=== PATIENT | male | born 1945 | race Caucasian/White ===

== ENCOUNTER → 2017-05-31 | Outpatient (CLI) | payer MEDICARE, OTHER ==
[~2017-05-31] MED LIST: AMLO5TAB2 PO; BISO5TAB2 PO; CELE50CA PO; DOCU100C15 PO; ECASA81 PO; FISH500C PO; HYDR-3583 PO; IBUP1TAB7 PO; LORA-650 PO; LOSA100T PO; MINO50CA PO; MULT-65 PO; OMEP20TA93 PO; PROS5TAB PO; SENN8.6T36 PO; SIMV40TA PO; TAMS5CAP PO; VITA200C3 PO; VITA500C18 PO; VOLT1GEL16 TOPICAL
[2017-05-31 08:58] LABS: HEMOGLOBIN 13.6 GM/DL (13.0-17.0); MEAN CELL VOLUME 86.2 FL (80.0-100.0); MEAN CORPUSCULAR HEMOGLOBIN 29.3 PG (27.0-34.0); MEAN PLATELET VOLUME 8.8 FL (7.0-11.0); PLATELET COUNT 198 TH/MM3 (150-450); RED BLOOD COUNT 4.64 MIL/MM3 (4.50-5.90); RED CELL DISTRIBUTION WIDTH 13.7 % (11.6-17.2); WHITE BLOOD COUNT 5.5 TH/MM3 (4.0-11.0)
[2017-05-31 09:21] LABS: BICARBONATE 28.6 MEQ/L (21.0-32.0); CALCIUM 8.8 MG/DL (8.5-10.1); CREATININE 0.94 MG/DL (0.60-1.30)
[2017-05-31 09:23] LABS: BILIRUBIN, URINE NEG (NEG); BLOOD, URINE NEG (NEG); GLUCOSE,URINE NEG (NEG); KETONE, URINE NEG (NEG); MUCUS URINE FEW /lpf (OCC); NITRITE,URINE NEG (NEG); SQUAMOUS EPITHELIAL CELL URINE <1 /hpf (0-5); URINE COLOR YELLOW (YELLW/STRAW); URINE LEUKOCYTE ESTERASE NEG (NEG)
== END ==
LOC: CPRE 07:44
PROVIDERS: ATTEND Orthopaedic Surgery
DX: Z01.812 Encounter for preprocedural laboratory examination (principal); M79.609 Pain in unspecified limb; M17.12 Unilateral primary osteoarthritis, left knee; I10 Essential (primary) hypertension
CPT/HCPCS: 36415; 80048; 81001; 85027; 85610; 85730

== ENCOUNTER 2017-06-18 05:44 | Inpatient (IN) | payer MEDICARE, OTHER ==
[~2017-06-18] VITALS: Ht 165.1 cm; Wt 96.4 kg
[~2017-06-18 05:44] MED LIST changes: -ECASA81 PO
[2017-06-18] MEDS ORDERED: ceFAZolin 2 GM PREMIX 50 ML IV SCH (06:15)
[2017-06-18] MEDS ORDERED: LACTATED RINGER'S 1000 ML IV PRN (06:15)
[2017-06-18] MEDS ORDERED: POVIDONE IODINE 5% (ANTISEPSIS KIT) 4 APPLICATIONS EACH NARE PRN (06:15)
[2017-06-18] MEDS ORDERED: SODIUM CHLORID 0.9% 500 ML IV PRN (06:15)
[2017-06-18] MEDS ORDERED: CHLORHEXIDINE GLUCONATE 4% SOLN 120 ML BTL TOPICAL SCH (06:15)
[2017-06-18] MEDS ORDERED: EXPAREL PERI-ARTICULAR INJECTION (TOTAL VOL. 100 ML) P-ARTICULR SCH ×2 (06:15)
[2017-06-18] MEDS ORDERED: METOPROLOL TARTRATE 25 MG TAB PO PRN (06:15)
[2017-06-18] MEDS ORDERED: CHLORHEXIDINE GLUCONATE 2 % 1 PACK (2 CLOTHS) TOPICAL PRN (06:15)
[2017-06-18] MEDS ORDERED: TRANEXAMIC ACID INJ 965 MG in SODIUM CHLORIDE 0.9% INJ 100 ML IV SCH ×4 (06:15)
[2017-06-18] MEDS ORDERED: GENTAMICIN SULFATE 80 MG/2 ML VIAL ONE (07:27)
[2017-06-18] MEDS ORDERED: ACETAMINOPHEN 1000 MG/100 ML 100 ML IV ONE (08:04)
[2017-06-18] MEDS ORDERED: FAMOTIDINE 20 MG/2 ML VIAL ONE (08:04)
[2017-06-18] MEDS ORDERED: MIDAZOLAM HCL 2 MG/2 ML VIAL ONE (08:05)
[2017-06-18] MEDS ORDERED: PROPOFOL 200 MG/20 ML AMP ONE ×2 (08:12)
[2017-06-18] MEDS ORDERED: BUPIVACAINE LIPOSOME PF 1.3% 20 ML VIAL ONE (08:31)
[2017-06-18] MEDS ORDERED: MORPHINE SULFATE 2 MG/ML INJ IV PUSH PRN (11:00)
[2017-06-18] MEDS ORDERED: ACETAMINOPHEN/HYDROcodone 325 MG/7.5 MG TAB PO PRN (11:00)
[2017-06-18] MEDS: KETOROLAC TROMETHAMINE 30 MG/ML (IVP) VIAL IVP SCH ×3 (11:00→22:35)
[2017-06-18] MEDS ORDERED: TRANEXAMIC ACID INJ 0 MG in SODIUM CHLORIDE 0.9% INJ 100 ML IV SCH (11:00)
[2017-06-18] MEDS ORDERED: Post-op Orders (for Pharmacy) XX ONE (11:00)
[2017-06-18] MEDS ORDERED: ONDANSETRON HCL 4 MG/2 ML VIAL IVP PRN (11:00)
[2017-06-18] MEDS ORDERED: MAGNESIUM HYDROXIDE SUSP 30 ML CUP PO PRN (11:00)
[2017-06-18] MEDS ORDERED: ACETAMINOPHEN/HYDROcodone 325 MG/10 MG TAB PO PRN (11:00)
--- NOTE | 2017-06-18 11:00 | HHI.PR ---
Immediate Post Op Note Procedure Date: Jun 18, 2017 Pre Op Diagnosis: (1) Primary osteoarthritis of right knee Post Op Diagnosis: (1) Primary osteoarthritis of right knee Surgeon: Dc Bridges M.D. Intern Product Marketing Manager(s): Cipriano Brunner Procedure: Right total knee arthroplasty with [place] Triathlon prosthesis (uncemented) Findings: There is severe osteoarthritis in the right knee that was tricompartmental in nature. There is eburnation, osteophytes and loss of articular cartilage to bone on bone. Complications: None Specimen(s) removed: None Estimated blood loss: 250 mL Anesthesia: Regional Block (adductor canal block), Spinal, Local (bupivacaine liposomal) Drains: Hemovac (2) IVF Tourniquet time (min at mmHg) 0 Patient to: PACU Patient Condition: Good Implant/Devices: SEE IMPLANT LOG (if applicable) Date/Time of Procedure: SEE SURGICAL CARE RECORD Branden Bridges MD (Charles) Jun 18, 2017 10:59
--- NOTE | 2017-06-18 11:07 | PD.OP ---
Operative Report Date of Surgery: Jun 18, 2017 Preoperative Diagnosis: (1) Primary osteoarthritis of right knee Postoperative Diagnosis: (1) Primary osteoarthritis of right knee Procedure: Right total knee arthroplasty using [place] Triathlon prosthesis (uncemented) Anesthesia: Spinal with supplemental adductor canal block regional and local with bupivacaine liposomal Surgeon: Dc Bridges M.D. Trailer Park Manager(s): Cipriano Brunner Operation and Findings: Indications and Findings: This 71-year-old man has had long-standing pain in his right knee was(decreasingly tooth anti-inflammatory agents and analgesics as well as intra-articular subcortical steroids and viscose supplementation. His activity levels have been decreased because of this. His ambulation tolerance is 1/2 mile. He has difficulty with stairs and standing from a seated position. Physical findings show significant degenerative varum with crepitation on motion, tenderness the medial aspect especially but also with medial laxity and medial osteophytes. X-rays showed severe osteoarthritis with loss of articular cartilage to bone on bone, large osteophytes and tricompartmental and obvious eburnation. Operative findings showed severe osteoarthritis in the medial compartment especially but also in the lateral patellofemoral compartments with eburnation, osteophytes and loss of articular cartilage to subchondral bone. The prosthesis used was a Paramjit Triathlon prosthesis. The femur was a size 6, cruciate retaining, uncemented. The tibial baseplate was a size 6 Tritanium with a 9 mm cruciate retaining X3 polyethylene spacer. The patella was a size 35 mm Tritanium backed. The patient was brought to the clean-air operating suite. A spinal anesthetic was administered as well as a regional anesthetic by abductor canal block. The position was supine with a small bolster under the hip on the operative side. A pneumatic tourniquet was applied to the upper thigh. The lower extremity was then prepped with alcohol, Hibiclens and ChloraPrep and draped in the usual manner with the knee draped free. An appropriate timeout procedure was carried out. An incision was made from about 3 fingerbreadths above the superior medial pole of patella down the tibial tubercle on the medial side. The incision was deepened through the subcutaneous tissue to the retinacular structures which were exposed medially and laterally. A medial retinacular incision was then made from the superior middle pole of patella down the tibial tubercle and up into the quadriceps tendon splitting it longitudinally and the medial one third. The patella was reflected. The infrapatellar fat pad was debulked. The anterior cruciate ligament was excised. Medial and lateral meniscectomies were initiated. Fenestrations were made in the distal femur and proximal tibia for intramedullary referencing guides. The distal femoral cutting guide and jig were then assembled for a 5, 8 mm cut. When this was fit position and placed cutting block was stabilized with pins. The jig was removed. The distal femoral cut was then completed with the oscillating saw. The sizing guide was then positioned in place along Whitesides line and the epicondylar axis and stabilized with pins. The femoral size was then determined as noted above. The 4-in-1 cutting block was then positioned in place. Anterior and posterior cuts were made followed by posterior and anterior chamfer cuts taking care to prevent injury to ligamentous structures. Osteophytes were then trimmed from the distal femur. A bone plug was then placed into the fenestration of the distal femur. The proximal tibia was then exposed. The medial and lateral meniscectomies were completed. The proximal tibial cutting guide was then positioned in place and stabilized with a pin for rotation. The depth of cut was then verified with a stylus off the lateral side. The cutting block was stabilized with pins. The jig was removed. The depth of cut was then verified and adjusted appropriately with the use of the spacer block. The proximal tibial cut was then made with the oscillating saw taking care to prevent injury to neurovascular and ligamentous structures. Proximal tibial bone was removed. Local anesthetic was administered with Exparel in the posterior capsule. The tibial baseplate trial was then positioned in place. After verifying the appropriate size, the base plate trial was positioned in place along with its spacer. The femoral component was then impacted into place. The alignment was checked. The tibial baseplate was then pinned in place on the tibia. Attention was directed to the patella. The patella drill guide was positioned in place for the appropriate sized patella. Patellar drilling was then carried out. The trial patella was positioned in place. The knee was taken through a range of motion which was easily 0 extension to 140. The patella trial was removed. The femoral drill holes were made. The femoral trials were removed. The tibial spacer was removed. A bone plug was placed into the proximal tibia. The tibial punch was impacted through the proximal tibial punch guide. This was all removed followed by placement of the tibial drill guide. The tibial drill holes were then made. The guide was removed. The cut ends of bone were then cleaned with pulse lavage. The tibial baseplate was then impacted into place and seated appropriately. The spacer was inserted. The the femoral component was then impacted into place and seated appropriately. The patella component was then seated with the patellar device and tightened appropriately. The knee was taken through a range of motion which was comparable to the previous range of motion with excellent stability in flexion and extension and appropriate patellofemoral tracking. The remainder of the Exparel was then injected throughout the knee as a local anesthetic. Drains were brought out the superior lateral aspect of the suprapatellar pouch. Wound closure then commenced using 0 Vicryl interrupted [id number] sutures for the capsular and fascial structures, 2-0 Vicryl interrupted simple sutures with buried knots for the subcutaneous tissues and 4- 0 Monocryl, tenuous subcuticular closure for the skin. The wound was then dressed with Steri-Strips followed by Optifoam silver impregnated dressing. Sterile soft roll with a cooling pad and Jose Manuel bandage from the base of the toes to mid thigh were then applied. Patient was then transferred from the operating room to the recovery room in satisfactory condition having tolerated procedure well. Counts are correct. Specimens: None. Estimated blood loss: 250 mL Branden Bridges MD (Charles) Jun 18, 2017 11:07
--- NOTE | 2017-06-18 11:13 | HHI.FF ---
Face to Face Verification Diagnosis: (1) Status post total right knee replacement Physical Therapy Gait training Knee: Total knee, Protocol: Left, Gait training, Full weight bearing Right LE Weight Bearing: WB as tolerated Right LE Range of Motion: Active ROM (active, active-assisted and passive range of motion. Range of motion goal is 0 extension to 135 of flexion.) Nursing Nursing: Dressing changes (beginning on postoperative day 7) Dressing Changes: Daily dressing change (to begin on postoperative day 7), Coverderm/Primapore Additional Instructions Remove Steri-Strips on postoperative day 14. I have seen patient Geo Hammer Jr uLis on 06/18/17. My clinical findings support the need for the requested home health care services because: Ltd mobility - disease progression Limited ability to care for self High risk of falls I certify that my clinical findings support that this patient is homebound because: Post-op weakness Unsteady gait/balance Unsafe to leave home unassisted Branden Bridges MD (Charles) Jun 18, 2017 11:13
[2017-06-18] MEDS ORDERED: DO NOT ADM ANY ANTICOAGULANT DRUGS PRN (11:15)
[2017-06-18] MEDS ORDERED: HYDR-3583 PO (11:15)
[2017-06-18] MEDS ORDERED: ECASA81 PO (11:16)
[2017-06-18] MEDS: LACTATED RINGER'S 1000 ML INJ 1,000 ML IV SCH ×2 (11:40→22:37)
[2017-06-18] MEDS ORDERED: *morphine SULFATE 8 MG/ML PERIprocedure ONLY ONE ×2 (11:42→12:11)
[2017-06-18] MEDS ORDERED: PHENYLEPH/NS 1000 MCG/10 ML SYR IV ONE (12:00)
[2017-06-18] MEDS ORDERED: KETOROLAC TROMETHAMINE 30 MG/ML (IVP) VIAL IV PUSH ONE (12:00)
[2017-06-18] MEDS ORDERED: LACTATED RINGER'S 1000 ML INJ 1,000 ML IV ONE (12:00)
[2017-06-18] MEDS ORDERED: PROPOFOL 200 MG/20 ML AMP IV ONE (12:00)
[2017-06-18] MEDS ORDERED: ONDANSETRON HCL 4 MG/2 ML VIAL IV PUSH ONE (12:00)
[2017-06-18] MEDS ORDERED: ePHEDrine/NS 25 MG/5 ML SYRINGE IV ONE (12:00)
[2017-06-18] MEDS: ACETAMINOPHEN/HYDROcodone 325 MG/7.5 MG TAB PO PRN ×3 (12:11→22:32)
--- NOTE | 2017-06-18 12:14 | RADRPT ---
EXAM DATE/TIME: 06/18/2017 11:45 [facility] COMPARISON: No previous studies available for comparison. INDICATIONS : Post-op left knee. MEDICAL HISTORY : None. SURGICAL HISTORY : None. ENCOUNTER: Initial ACUITY: 1 day PAIN SCORE: 5/10 LOCATION: Left Knee. FINDINGS: Two view examination of the left knee demonstrates postoperative left total knee replacement. Drain i n soft tissues. Normal alignment. No complications. CONCLUSION: 1. Postop left total knee replacement. Davian Santamaria MD on June 18, 2017 at 12:11 Board Certified Radiologist. This report was verified electronically.
--- NOTE | 2017-06-18 14:25 | PD.CONS ---
[facility] By Dr. Iban Bridges Reason for Consult Medical management Primary Care Physician Pilo Ly MD Diagnoses: History of Present Illness This is a 71-year-old male complaining of bilateral knee pain affecting his activities of daily living secondary to osteoarthritis. Underwent elective replacement of the right knee by Dr. Bridges who requested consultation to evaluate and manage multiple medical conditions. Anesthesia records reviewed the was hemodynamically stable received 1600 mL crystalloid and EBL 200 ml. he has hypertension controlled on Norvasc, Cozaar, bisoprolol/Hydrocort Dyazide, BPH manage on Proscar and Flomax, allergies on Claritin, Protonix for GERD and pravastatin for hyperlipidemia. At this time complains of mild right knee pain. All other systems reviewed negative Review of Systems Except as stated in HPI: all other systems reviewed are Neg Past Family Social History Allergies: Uncoded Allergies: STEROIDS (Allergy, Severe, FATIGUE, 05/31/17) Past Medical History As previously mentioned Past Surgical History Appendectomy, bladder cancer, basal cell cancer, rotator cuff surgery and bilateral knee scopes Reported Medications Reported Meds & Active Scripts Active Hydrocodone-Acetaminophen 10-325 mg Tab 1 Tab PO Q4H PRN Reported Omeprazole 20 Mg Tab 20 Mg PO DAILY Fish Oil ([place]-3 Fatty Acids) 60 Mg-90 Mg-500 Mg Cap 1 Cap PO DAILY Multi-Vitamin Daily (Multiple Vitamin) 1 Tab Tab 1 Tab PO DAILY Vitamin E 200 Unit Cap 400 Units PO DAILY Vitamin C Sr (Ascorbic Acid) 500 Mg Caper 1,000 Mg PO DAILY Voltaren (Diclofenac Sodium) 1 % Gel..gram. 1 Applic TOPICAL DAILY Docusate Sodium 100 Mg Cap 100 Mg PO DAILY Senna-Tabs (Sennosides) 8.6 Mg Tab 8.6 Mg PO DAILY Minocycline (Minocycline HCl) 50 Mg Cap 50 Mg PO BID Amlodipine (Amlodipine Besylate) 5 Mg Tab 5 Mg PO DAILY Losartan (Losartan Potassium) 100 Mg Tab 100 Mg PO DAILY Proscar (Finasteride) 5 Mg Tab 5 Mg PO DAILY Do not crush. Ibuprofen 800 Mg Tab 800 Mg PO Q8H PRN Flomax (Tamsulosin HCl) 0.4 Mg Cap 0.4 Mg PO HS Simvastatin 40 Mg Tab 40 Mg PO HS Bisoprolol-Hydrochlorothiazide 5-6.25 Mg Tab 1 Tab PO DAILY Celebrex (Celecoxib) 50 Mg Cap 50 Mg PO BID Allergy Relief (Loratadine) 10 Mg Tab 10 Mg PO DAILY Family History No CVA Social History Does not smoke or drink Physical Exam Vital Signs Vital Signs Date Time Temp Pulse Resp B/P (MAP) Pulse Ox O2 Delivery O2 Flow Rate FiO2 06/18/17 12:30 60 16 150/73 (98) 99 Room Air 06/18/17 12:23 16 06/18/17 12:15 64 16 158/83 (108) 97 Room Air 06/18/17 12:00 62 16 129/77 (94) 97 Room Air 06/18/17 11:45 60 16 144/80 (101) 99 Room Air 06/18/17 11:30 64 16 112/72 (85) 97 Room Air 06/18/17 11:15 97.5 66 16 99/67 (78) 97 Room Air 06/18/17 06:00 98.9 61 18 135/78 (97) 97 Physical Exam GENERAL: This is a well-nourished, well-developed patient, in no apparent distress. SKIN: No rashes, ecchymoses or lesions. Cool and dry. HEAD: Atraumatic. Normocephalic. No temporal or scalp tenderness. EYES: Pupils equal round and reactive. Extraocular motions intact. No scleral icterus. No injection or drainage. ENT: Nose without bleeding, purulent drainage or septal hematoma. Throat without erythema, tonsillar hypertrophy or exudate. Uvula midline. Airway patent. NECK: Trachea midline. No JVD or lymphadenopathy. Supple, nontender, no meningeal signs. CARDIOVASCULAR: Regular rate and rhythm without murmurs, gallops, or rubs. RESPIRATORY: Clear to auscultation. Breath sounds equal bilaterally. No wheezes , rales, or rhonchi. GASTROINTESTINAL: Abdomen soft, non-tender, nondistended. No hepato-splenomegaly , or palpable masses. No guarding. MUSCULOSKELETAL: Extremities without clubbing, cyanosis, or edema. No joint tenderness, effusion, or edema noted. No calf tenderness. Negative Homans sign bilaterally. NEUROLOGICAL: Awake and alert. Cranial nerves II through XII intact. Motor and sensory grossly within normal limits. Five out of 5 muscle strength in all muscle groups. Normal speech. Assessment and Plan Assessment and Plan This is a 71-year-old male complaining of bilateral knee pain affecting his activities of daily living secondary to osteoarthritis. Underwent elective replacement of the right knee by Dr. Bridges who requested consultation to evaluate and manage multiple medical conditions. Anesthesia records reviewed the was hemodynamically stable received 1600 mL crystalloid and EBL 200 ml. Right knee osteoarthritis status post replacement. Stable continue postoperative care with physical therapy, wound care, pain management with Lortab, IV morphine and IV Toradol and DVT prophylaxis with aspirin. Hypertension controlled on Norvasc, Cozaar, bisoprolol/Hydrocort Dyazide BPH stable on Proscar and Flomax Allergies on Claritin, Controlled GERD. Asymptomatic on PPI Hyperlipidemia. Continue pravastatin. Constipation. Continue bowel regimen Discussed Condition With Patient and nursing staff Rob Wyatt MD Jun 18, 2017 14:25
[2017-06-18 15:59] VITALS: BP 133/72; PULSE 65; RESP 18; TEMP 96.7; O2SAT 97
[2017-06-18] MEDS ORDERED: FINASTERIDE 5 MG TAB PO ONE (17:45)
[2017-06-18 19:23] VITALS: BP 127/70; PULSE 84; RESP 18; TEMP 96.7; O2SAT 98
[2017-06-18] MEDS ORDERED: MINOCYCLINE HCL 50 MG CAP PO SCH (21:00)
[2017-06-18] MEDS ORDERED: CELECOXIB 50 MG PO SCH (21:00)
[2017-06-18] MEDS ORDERED: PRAVASTATIN SOD 80 MG TAB PO SCH (21:00)
[2017-06-18] MEDS ORDERED: TAMSULOSIN HCL 0.4 MG CAP PO SCH (21:00)
[2017-06-18] MEDS ORDERED: ZOLPIDEM TARTRATE 5 MG TAB PO PRN (21:00)
[2017-06-18] MEDS: ASPIRIN EC 81 MG TABEC PO SCH (22:33)
[2017-06-18 23:35] VITALS: BP 107/81; PULSE 67; RESP 18; TEMP 97.7; O2SAT 96
[2017-06-19] MEDS: KETOROLAC TROMETHAMINE 30 MG/ML (IVP) VIAL IVP SCH ×2 (03:50→12:27)
[2017-06-19 03:52] VITALS: BP 146/77; PULSE 71; RESP 18; TEMP 97.1; O2SAT 97
--- NOTE | 2017-06-19 06:35 | PD.ORT.PN ---
Subjective Post Op Day #: 1 Subjective Remarks He is doing well. He has minimal complaints related to his knee at this time. He walked around the PACU with therapy yesterday and again, when he came to the floor he walked around the floor. Range of Motion 0 to 98. Distance Walked 175 feet with physical therapy. Objective Vitals Vital Signs Date Time Temp Pulse Resp B/P (MAP) Pulse Ox O2 Delivery O2 Flow Rate FiO2 06/19/17 04:21 17 06/19/17 04:21 17 06/19/17 03:52 97.1 71 18 146/77 (100) 97 06/19/17 00:54 Room Air 06/18/17 23:35 97.7 67 18 107/81 (90) 96 06/18/17 23:32 17 06/18/17 19:23 96.7 84 18 127/70 (89) 98 06/18/17 15:59 96.7 65 18 133/72 (92) 97 06/18/17 15:00 66 16 124/74 (91) 99 Room Air 06/18/17 14:00 60 16 136/77 (96) 99 Room Air 06/18/17 13:00 70 16 128/70 (89) 100 Room Air 06/18/17 12:30 60 16 150/73 (98) 99 Room Air 06/18/17 12:15 64 16 158/83 (108) 97 Room Air 06/18/17 12:00 62 16 129/77 (94) 97 Room Air 06/18/17 11:45 60 16 144/80 (101) 99 Room Air 06/18/17 11:30 64 16 112/72 (85) 97 Room Air 06/18/17 11:15 97.5 66 16 99/67 (78) 97 Room Air I/O 06/18/17 06/18/17 06/18/17 06/19/17 06/19/17 06/19/17 07:00 15:00 23:00 07:00 15:00 23:00 Intake Total 2200 ml 480 ml 480 ml Output Total 785 ml 310 ml 550 ml Balance 1415 ml 170 ml -70 ml Intake Oral 500 ml 480 ml 480 ml IV Total 100 ml Other 1600 ml Output Urine Total 500 ml 200 ml 550 ml Drainage Total 85 ml 110 ml Estimated Blood Loss 200 ml # Bowel Movements 0 0 Imaging Last 24 hours Impressions Knee X-Ray 06/18/17 1144 Signed Impressions: Service Date/Time: Sunday, June 18, 2017 11:45 - CONCLUSION: 1. Postop left total knee replacement. Davian Santamaria MD Objective Remarks He is resting comfortably, supine in bed, in the CPM. The dressing is dry and intact. His neurovascular status is intact. Assessment & Plan Ortho Post Op Day #: 1 Problem List: (1) Status post total right knee replacement ICD Codes: Z96.651 - Presence of right artificial knee joint Plan: Continue postoperative care and PT. Assessment and Plan Condition: Good. Orthopedically stable. DVT prophylaxis: TEDs, aspirin, sequentials. Discharge plans: Home with home health care. An appointment was scheduled through the office. Prescriptions: Helen Branden Bridges MD (Charles) Jun 19, 2017 06:34
--- NOTE | 2017-06-19 06:56 | HHI.DS ---
Discharge Summary Admission Date Jun 18, 2017 at 05:44 Discharge Date: Jun 19, 2017 Admitting Diagnosis Primary osteoarthritis, left knee Diagnosis: (1) Primary osteoarthritis of left knee Diagnosis: Principal ICD Codes: M17.12 - Unilateral primary osteoarthritis, left knee Status: Resolved (2) Status post total left knee replacement Diagnosis: Principal ICD Codes: Z96.652 - Presence of left artificial knee joint Procedures Left total knee arthroplasty with Paramjit Triathlon prosthesis (uncemented) on Brief History This is a 71 year old male patient has had left knee pain nonresponsive to conservative measures and progressively worsening in pain and disability over the past few years. He has had increasing deformity in the knee. He has not responded to conservative measures including viscosupplementation, intra- articular corticosteroids, oral anti-inflammatory agents ambulatory aids and exercises. Physical findings show severe varus left knee with an antalgic gait, palpable osteophytes and medial laxity. X-ray showed severe osteoarthritis down to [id number] in the medial compartment with large osteophytes medially, laterally in the patellofemoral compartment. Significant Findings Laboratory Tests Test 06/19/17 05:40 Hemoglobin 11.0 GM/DL Hematocrit 31.4 % Laboratory Tests Imaging Last 72 hours Impressions Knee X-Ray 06/18/17 1144 Signed Impressions: Service Date/Time: Sunday, June 18, 2017 11:45 - CONCLUSION: 1. Postop left total knee replacement. Davian Santamaria MD PE at Discharge He is resting comfortably, supine in bed, in the CPM. The dressing is dry and intact. His neurovascular status is intact. Hospital Course The patient was admitted on 06/18/2017. He had the above noted left total knee arthroplasty carried out. Preoperatively and subsequently postoperatively he had prophylactic antibiotics in the form of Ancef. In addition, he had tranexamic acid for assist with hemostasis. Postoperatively, DVT prophylaxis was initiated with KENA stockings and sequentials. Aspirin was added on the first postoperative day. He was placed into a continuous passive motion device which was used while in bed. He started with physical therapy on the day of surgery, walking in the PACU and subsequently on the floor. He ambulated with therapy 175 feet as documented. He had a range of motion from 0 extension to 93 of flexion on the first day of surgery. He was progressing well and continue with physical therapy. He is discharged home with home health care on 06/19/2017. He has a follow-up appointment. Pt Condition on Discharge: Good Discharge Disposition: Disch w/ Home Health Serv Discharge Instructions Diet Instructions: As Tolerated, No Restrictions Activities You Can Perform: Full Weight Bearing, Shower Only-No Bath Activities to Avoid: Lifting/Bending, Strenuous Activity, Bathing, Driving Follow up Referrals: Orthopedics with Branden Bridges MD (Charles) New Medications: Aspirin DR (Aspirin DR) 81 Mg Tabdr 81 MG PO BID for Prevent Blood Clot for 30 Days, #60 TAB Continued Medications: Ascorbic Acid ER (Vitamin C Sr) 500 Mg Caper 1000 MG PO DAILY for Nutritional Supplement, CAP 0 Refills Bisoprolol-Hydrochlorothiazide (Bisoprolol-Hydrochlorothiazide) 5-6.25 Mg Tab 1 TAB PO DAILY for Blood Pressure Management, #30 TAB 0 Refills Celecoxib (Celebrex) 50 Mg Cap 50 MG PO BID for Pain Management, CAP 0 Refills Diclofenac Sodium (Voltaren) 1 % Gel..gram. 1 APPLIC TOPICAL DAILY Docusate Sodium (Docusate Sodium) 100 Mg Cap 100 MG PO DAILY for Prevent Constipation, #60 CAP 0 Refills Finasteride (Proscar) 5 Mg Tab 5 MG PO DAILY for Manage Prostate Problems, #30 TAB 0 Refills Do not crush. Hydrocodone-Acetaminophen (Hydrocodone-Acetaminophen) 10-325 mg Tab 1 TAB PO Q4H PRN for PAIN, #30 TAB 0 Refills (This prescription has been renewed ) Ibuprofen (Ibuprofen) 800 Mg Tab 800 MG PO Q8H PRN for PAIN SCALE 1 TO 10, TAB 0 Refills Loratadine (Allergy Relief) 10 Mg Tab 10 MG PO DAILY, TAB Losartan (Losartan) 100 Mg Tab 100 MG PO DAILY for Blood Pressure Management, #30 TAB 0 Refills Minocycline (Minocycline) 50 Mg Cap 50 MG PO BID for Mgmt Bacterial Infection, CAP 0 Refills Multiple Vitamin (Multi-Vitamin Daily) 1 Tab Tab 1 TAB PO DAILY for Nutritional Supplement, TAB 0 Refills [place]-3 Fatty Acids (Fish Oil) 60 Mg-90 Mg-500 Mg Cap 1 CAP PO DAILY Omeprazole (Omeprazole) 20 Mg Tab 20 MG PO DAILY, #30 TAB 0 Refills Sennosides (Senna-Tabs) 8.6 Mg Tab 8.6 MG PO DAILY for Constipation, #30 TAB 0 Refills Simvastatin (Simvastatin) 40 Mg Tab 40 MG PO HS for Cholesterol Management, #30 TAB 0 Refills Tamsulosin (Flomax) 0.4 Mg Cap 0.4 MG PO HS for Manage Prostate Problems, #30 CAP 0 Refills Vitamin E (Vitamin E) 200 Unit Cap 400 UNITS PO DAILY for Nutritional Supplement, CAP 0 Refills Branden Bridges MD (Charles) Jun 19, 2017 06:56
[2017-06-19 06:59] LABS: HEMATOCRIT 31.4 % (39.0-51.0)
[2017-06-19 08:00] VITALS: BP 140/78; PULSE 71; RESP 18; TEMP 96.9; O2SAT 98
[2017-06-19] MEDS: ASPIRIN EC 81 MG TABEC PO SCH (08:39)
[2017-06-19] MEDS: ACETAMINOPHEN/HYDROcodone 325 MG/7.5 MG TAB PO PRN ×2 (08:40→12:26)
[2017-06-19] MEDS ORDERED: FINASTERIDE 5 MG TAB PO SCH ×2 (09:00→14:00)
[2017-06-19] MEDS ORDERED: VITAMIN E 400 UNIT PO SCH (09:00)
[2017-06-19] MEDS ORDERED: BISOPROLOL HYDROCHLOROTHIAZIDE PO SCH (09:00)
[2017-06-19] MEDS ORDERED: LOSARTAN 50 MG TAB PO SCH (09:00)
[2017-06-19] MEDS ORDERED: DOCUSATE SODIUM 100 MG CAP PO SCH ×2 (09:00→21:00)
[2017-06-19] MEDS ORDERED: PANTOPRAZOLE SOD 20 MG DELAYED RELEASE TAB PO SCH (09:00)
[2017-06-19] MEDS ORDERED: ASCORBIC ACID 1000 MG PO SCH (09:00)
[2017-06-19] MEDS ORDERED: SENNOSIDES 8.6 MG TAB PO SCH (09:00)
[2017-06-19] MEDS ORDERED: amLODIPine BESYLATE 5 MG TAB PO SCH (09:00)
[2017-06-19] MEDS ORDERED: LORATADINE 10 MG TAB PO SCH (09:00)
[2017-06-19] MEDS ORDERED: MULTIVITAMIN TAB PO SCH (09:00)
[2017-06-19] MEDS ORDERED: DICLOFENAC SODIUM TOPICAL SCH (09:00)
[2017-06-19] MEDS ORDERED: NON-FORMULARY DRUG (Omega-3 Fatty Acids (Fish Oil) 1 CAP) PO SCH (09:00)
[2017-06-19 11:09] VITALS: O2SAT 98
[2017-06-19 12:00] VITALS: BP 148/70; PULSE 73; RESP 18; TEMP 98.7; O2SAT 96
[2017-06-19] MEDS: LACTATED RINGER'S 1000 ML INJ 1,000 ML IV SCH (12:00)
[2017-06-19 13:36] VITALS: RESP 16
--- NOTE | 2017-06-19 13:49 | HHI.PR ---
Subjective Remarks Follow-up left knee surgery and anemia. Patient doing okay denies dizziness or weakness. Seen with . Discussed with RN Objective Vitals Vital Signs Date Time Temp Pulse Resp B/P (MAP) Pulse Ox O2 Delivery O2 Flow Rate FiO2 06/19/17 13:36 16 06/19/17 13:36 16 06/19/17 12:00 98.7 73 18 148/70 (96) 96 06/19/17 11:09 98 06/19/17 08:00 96.9 71 18 140/78 (98) 98 06/19/17 04:21 17 06/19/17 03:52 97.1 71 18 146/77 (100) 97 06/19/17 00:54 Room Air 06/18/17 23:35 97.7 67 18 107/81 (90) 96 06/18/17 19:23 96.7 84 18 127/70 (89) 98 06/18/17 15:59 96.7 65 18 133/72 (92) 97 06/18/17 15:00 66 16 124/74 (91) 99 Room Air 06/18/17 14:00 60 16 136/77 (96) 99 Room Air I/O 06/18/17 06/18/17 06/18/17 06/19/17 06/19/17 06/19/17 07:00 15:00 23:00 07:00 15:00 23:00 Intake Total 2200 ml 480 ml 680 ml Output Total 785 ml 310 ml 560 ml Balance 1415 ml 170 ml 120 ml Intake Oral 500 ml 480 ml 480 ml IV Total 100 ml 200 ml Other 1600 ml Output Urine Total 500 ml 200 ml 550 ml Drainage Total 85 ml 110 ml 10 ml Estimated Blood Loss 200 ml # Bowel Movements 0 0 Result Diagram: 06/19/17 0540 Imaging Last Impressions Knee X-Ray 06/18/17 1144 Signed Impressions: Service Date/Time: Sunday, June 18, 2017 11:45 - CONCLUSION: 1. Postop left total knee replacement. Davian Santamaria MD Objective Remarks GENERAL: This is a well-nourished, well-developed patient, in no apparent distress. SKIN: No rashes, ecchymoses or lesions. Cool and dry. CARDIOVASCULAR: Regular rate and rhythm without murmurs, gallops, or rubs. RESPIRATORY: Clear to auscultation. Breath sounds equal bilaterally. No wheezes , rales, or rhonchi. GASTROINTESTINAL: Abdomen soft, non-tender, nondistended. No guarding. MUSCULOSKELETAL: Extremities without clubbing, cyanosis, or edema. Left knee with dry dressing Negative Homans sign bilaterally. NEUROLOGICAL: Awake and alert. Cranial nerves II through XII intact. Motor and sensory grossly within normal limits. Five out of 5 muscle strength in all muscle groups. Normal speech. A/P Assessment and Plan This is a 71-year-old male complaining of bilateral knee pain affecting his activities of daily living secondary to osteoarthritis. Underwent elective replacement of the left knee by Dr. Bridges who requested consultation to evaluate and manage multiple medical conditions. Anesthesia records reviewed the was hemodynamically stable received 1600 mL crystalloid and EBL 200 ml. Left knee osteoarthritis status post replacement. Stable continue postoperative care with physical therapy, wound care, pain management with Lortab, IV morphine and IV Toradol and DVT prophylaxis with aspirin. Anemia secondary to acute blood loss. Hemodynamically stable. Asymptomatic. Continue to monitor Hypertension controlled on Norvasc, Cozaar, bisoprolol/ Hydrochlorothiazide BPH stable on Proscar and Flomax Allergies on Claritin, Controlled GERD. Asymptomatic on PPI Hyperlipidemia. Continue pravastatin. Constipation. Continue bowel regimen Discharge Planning Stable for discharge Rob Wyatt MD Jun 19, 2017 13:49
== END 2017-06-19 14:59 | disposition home health service (06) | DRG 470 ==
LOC: HSDI 05:44 → N06A 15:45
PROVIDERS: ADMIT Orthopaedic Surgery; ATTEND Orthopaedic Surgery
PROC: 3E0T3BZ Introduction of Anesthetic Agent into Peripheral Nerves and Plexi, Percutaneous Approach (ICD-10-PCS; 2017-06-18)
PROC: 0SRD0JA Replacement of Left Knee Joint with Synthetic Substitute, Uncemented, Open Approach (ICD-10-PCS; principal; 2017-06-18 08:21)
DX: M17.12 Unilateral primary osteoarthritis, left knee (principal); D62 Acute posthemorrhagic anemia; I10 Essential (primary) hypertension; E78.5 Hyperlipidemia, unspecified; K21.9 Gastro-esophageal reflux disease without esophagitis; K59.00 Constipation, unspecified; Z85.51 Personal history of malignant neoplasm of bladder; Z85.828 Personal history of other malignant neoplasm of skin
CPT/HCPCS: 73560; 85014; 85018; 86850; 86900; 86901; 94150; C1776; C9290; J0131; J0690; J1580; J1885; J2250; J2270; J2370; J2405; J3010; J7120

== ENCOUNTER → 2017-08-30 | Outpatient (CLI) | payer MEDICARE, OTHER ==
[~2017-08-30] MED LIST changes: +ECASA81 PO
[2017-08-30 08:25] LABS: HEMATOCRIT 38.4 % (39.0-51.0); HEMOGLOBIN 12.9 GM/DL (13.0-17.0); MEAN CORPUSCULAR HEMOGLOBIN 28.3 PG (27.0-34.0); MEAN CORPUSCULAR HGB CONC 33.6 % (32.0-36.0); MEAN PLATELET VOLUME 8.4 FL (7.0-11.0); PLATELET COUNT 187 TH/MM3 (150-450); RED BLOOD COUNT 4.57 MIL/MM3 (4.50-5.90); RED CELL DISTRIBUTION WIDTH 14.4 % (11.6-17.2); WHITE BLOOD COUNT 4.7 TH/MM3 (4.0-11.0)
[2017-08-30 08:37] LABS: PROTHROMBIN TIME - PATIENT 9.9 SEC (9.8-11.6)
[2017-08-30 08:51] LABS: BICARBONATE 29.2 MEQ/L (21.0-32.0); CALCIUM 8.7 MG/DL (8.5-10.1); CREATININE 0.84 MG/DL (0.60-1.30)
[2017-08-30 09:53] LABS: BACTERIA, URINE RARE /hpf; BILIRUBIN, URINE NEG (NEG); BLOOD, URINE NEG (NEG); GLUCOSE,URINE NEG (NEG); KETONE, URINE NEG (NEG); NITRITE,URINE NEG (NEG); PH, URINE 5.5 (5.0-8.5); SQUAMOUS EPITHELIAL CELL URINE <1 /hpf (0-5); URINE COLOR YELLOW (YELLW/STRAW); URINE LEUKOCYTE ESTERASE NEG (NEG)
== END ==
LOC: CPRE 08:02
PROVIDERS: ATTEND Orthopaedic Surgery
DX: Z01.812 Encounter for preprocedural laboratory examination (principal); M17.11 Unilateral primary osteoarthritis, right knee; I10 Essential (primary) hypertension; M79.609 Pain in unspecified limb; M21.161 Varus deformity, not elsewhere classified, right knee
CPT/HCPCS: 36415; 80048; 81001; 85027; 85610; 85730

== ENCOUNTER 2017-09-16 05:10 | Inpatient (IN) | payer MEDICARE, OTHER ==
[~2017-09-16] VITALS: Ht 175.3 cm; Wt 97.0 kg
[~2017-09-16 05:10] MED LIST changes: -ECASA81 PO; -IBUP1TAB7 PO
[2017-09-16] MEDS ORDERED: CHLORHEXIDINE GLUCONATE 2 % 1 PACK (2 CLOTHS) TOPICAL PRN (05:45)
[2017-09-16] MEDS ORDERED: POVIDONE IODINE 5% (ANTISEPSIS KIT) 4 APPLICATIONS EACH NARE PRN (05:45)
[2017-09-16] MEDS ORDERED: SODIUM CHLORID 0.9% 500 ML IV PRN (05:45)
[2017-09-16] MEDS ORDERED: METOPROLOL TARTRATE 25 MG TAB PO PRN (05:45)
[2017-09-16] MEDS ORDERED: CHLORHEXIDINE GLUCONATE 4% SOLN 120 ML BTL TOPICAL SCH (05:45)
[2017-09-16] MEDS ORDERED: LACTATED RINGER'S 1000 ML IV PRN (05:45)
[2017-09-16] MEDS ORDERED: ACETAMINOPHEN 1000 MG/100 ML 100 ML IV ONE (05:50)
[2017-09-16] MEDS ORDERED: GENTAMICIN SULFATE 80 MG/2 ML VIAL ONE (06:20)
[2017-09-16] MEDS ORDERED: ceFAZolin INJ 1,000 MG VIAL ONE (06:20)
[2017-09-16] MEDS ORDERED: FAMOTIDINE 20 MG/2 ML VIAL ONE ×2 (06:26→06:33)
[2017-09-16] MEDS ORDERED: MIDAZOLAM HCL 2 MG/2 ML VIAL ONE (06:26)
[2017-09-16] MEDS ORDERED: PROPOFOL 500 MG/50 ML INJ 100 ML ONE (06:32)
[2017-09-16] MEDS ORDERED: BUPIVACAINE PF 0.75% DEX-WATER INJ 2 ML AMP ONE (06:32)
[2017-09-16] MEDS ORDERED: FAMOTIDINE 20 MG/2 ML VIAL IV PUSH ONE (06:45)
[2017-09-16] MEDS ORDERED: ONDANSETRON HCL 4 MG/2 ML VIAL IVP PRN (06:45)
[2017-09-16] MEDS ORDERED: MAGNESIUM HYDROXIDE SUSP 30 ML CUP PO PRN (06:45)
[2017-09-16] MEDS ORDERED: ACETAMINOPHEN/HYDROcodone 325 MG/7.5 MG TAB PO PRN (06:45)
[2017-09-16] MEDS ORDERED: MIDAZOLAM HCL 2 MG/2 ML VIAL IV SCH (06:45)
[2017-09-16] MEDS ORDERED: TRANEXAMIC ACID INJ 0 MG in SODIUM CHLORIDE 0.9% INJ 100 ML IV SCH (06:45)
[2017-09-16] MEDS ORDERED: ZOLPIDEM TARTRATE 5 MG TAB PO PRN (06:45)
[2017-09-16] MEDS ORDERED: Post-op Orders (for Pharmacy) XX ONE (06:45)
--- NOTE | 2017-09-16 06:46 | HHI.FF ---
Face to Face Verification Diagnosis: (1) Status post total right knee replacement Physical Therapy Gait training Knee: Total knee, Protocol: Right, Gait training, Full weight bearing Right LE Weight Bearing: WB as tolerated Right LE Range of Motion: Active ROM (active, active-assisted, passive range of motion. Range of motion goal is 0 extension to 135 of flexion.) Nursing Nursing: Dressing changes Dressing Changes: Daily dressing change, Coverderm/Primapore Additional Instructions Do not remove Dermabond Prineo. I have seen patient Geo Keerafat Smith Jr on 09/16/17. My clinical findings support the need for the requested home health care services because: Ltd mobility - disease progression Limited ability to care for self High risk of falls I certify that my clinical findings support that this patient is homebound because: Post-op weakness Unsteady gait/balance Unsafe to leave home unassisted Branden Bridges MD (Charles) Sep 16, 2017 06:46
[2017-09-16] MEDS ORDERED: TRANEXAMIC ACID INJ 970 MG in SODIUM CHLORIDE 0.9% INJ 100 ML IV SCH ×2 (07:00→10:00)
[2017-09-16] MEDS ORDERED: EXPAREL PERI-ARTICULAR INJECTION (TOTAL VOL. 100 ML) P-ARTICULR SCH ×2 (07:00)
[2017-09-16] MEDS: SENNOSIDES 8.6 MG TAB PO SCH (09:00)
[2017-09-16] MEDS: FINASTERIDE 5 MG TAB PO SCH (09:00)
[2017-09-16] MEDS ORDERED: NON-FORMULARY DRUG (Omega-3 Fatty Acids (Fish Oil) 1 CAP) PO SCH (09:00)
[2017-09-16] MEDS ORDERED: ASCORBIC ACID 1000 MG PO SCH (09:00)
[2017-09-16] MEDS: ASPIRIN EC 81 MG TABEC PO SCH ×2 (09:00→20:13)
[2017-09-16] MEDS ORDERED: HYDROCHLOROTHIAZIDE 6.25 MG PO SCH (09:00)
[2017-09-16] MEDS: LORATADINE 10 MG TAB PO SCH (09:00)
[2017-09-16] MEDS ORDERED: VOLTAREN TOPICAL SCH (09:00)
[2017-09-16] MEDS: LOSARTAN 50 MG TAB PO SCH (09:00)
[2017-09-16] MEDS: amLODIPine BESYLATE 5 MG TAB PO SCH (09:00)
[2017-09-16] MEDS: MINOCYCLINE HCL 50 MG CAP PO SCH ×2 (09:00→20:12)
[2017-09-16] MEDS ORDERED: CELECOXIB PO SCH (09:00)
[2017-09-16] MEDS ORDERED: BISOPROLOL PO SCH (09:00)
--- NOTE | 2017-09-16 09:23 | PD.OP ---
Operative Report Date of Surgery: Sep 16, 2017 Preoperative Diagnosis: (1) Primary osteoarthritis of right knee Postoperative Diagnosis: (1) Primary osteoarthritis of right knee Procedure: Right total knee arthroplasty using Ostrander Triathlon prosthesis (uncemented). Anesthesia: Spinal with supplemental adductor canal block regional and local with Exparel. Surgeon: Dc Bridges M.D. Laborer C[employer] Gun Placing(s): DARRIAN Vázquez Operation and Findings: Indications and Findings: This 72-year-old man has had right knee pain for 9-10 years. This has progressively worsened over time to the point that he has an ambulation tolerance of half mile. He has difficulty ascending and descending stairs and has giving way. Treatment has included anti-inflammatory agents, analgesics, activity modifications, viscosupplementation and exercises. This has not responded to conservative measures. Physical findings showed significant genu valgum on the right with palpable osteophytes, crepitation on motion and tenderness on motion. Radiographic findings showed severe loss of articular cartilage in the medial compartment to [id number] with eburnation and tricompartmental osteophytes. Operative findings: There was severe osteoarthritis with tricompartmental involvement predominantly in the medial and patellofemoral compartments. There was erosion into the tibia on the medial side with subchondral sclerosis and subchondral cysts. There were significant osteophytes medially but also laterally in the patellofemoral joint. There was some calcification in the soft tissues. The prosthesis used was a Ostrander Triathlon prosthesis. The femur was a size 7 cruciate retaining uncemented. The tibial baseplate was a size 7 Tritanium with a 11 mm cruciate retaining X3 polyethylene spacer. The patella was a size 35 mm asymmetric Tritanium backed. The patient was brought to the clean-air operating suite after an adductor canal block regional had been performed. A spinal anesthetic was administered. The position was supine with a small bolster under the hip on the operative side. A pneumatic tourniquet was applied to the upper thigh. The lower extremity was then prepped with alcohol, Hibiclens and ChloraPrep and draped in the usual manner with the knee draped free. An appropriate timeout procedure was carried out. An incision was made from about 3 fingerbreadths above the superior medial pole of patella down the tibial tubercle on the medial side. The incision was deepened through the subcutaneous tissue to the retinacular structures which were exposed medially and laterally. A medial retinacular incision was then made from the superior middle pole of patella down the tibial tubercle and up into the quadriceps tendon splitting it longitudinally and the medial one third. The patella was reflected. The infrapatellar fat pad was debulked. The anterior cruciate ligament was excised. Medial and lateral meniscectomies were initiated. A fenestration was made in the distal femur for the intramedullary referencing guide. A fenestration was made in the proximal tibia for the intramedullary referencing guide. The distal femoral cutting guide and jig were then assembled for a 5, 8 mm cut. When this was in position, the cutting block was stabilized with pins. The jig was removed. The distal femoral cut was then completed with the oscillating saw. The sizing guide was then positioned in place along Whitesides line and the epicondylar axis and stabilized with pins. The femoral size was then determined with the sizing guide. The 4-in-1 cutting block was then positioned in place. Anterior and posterior cuts were made followed by posterior and anterior chamfer cuts taking care to prevent injury to ligamentous structures. Osteophytes were then trimmed from the distal femur. A bone plug was then placed into the fenestration of the distal femur. The proximal tibia was then exposed. The medial and lateral meniscectomies were completed. The proximal tibial cutting guide was then positioned in place and stabilized with a pin for rotation. The depth of cut was then verified with a stylus referencing from the predetermined side. The cutting block was stabilized with pins. The jig was removed. The depth of cut was then verified and adjusted appropriately with the use of the spacer block. The proximal tibial cut was then made with the oscillating saw taking care to prevent injury to neurovascular and ligamentous structures. Proximal tibial bone was removed. Local anesthetic was administered with Exparel in the posterior capsule. The tibial baseplate trial was then positioned in place. After verifying the appropriate size, the base plate trial was positioned in place along with its spacer. The trial femoral component was then impacted into place. The alignment was checked. The trial tibial baseplate was then pinned in place on the tibia. Attention was directed to the patella. The patella drill guide was positioned in place for the appropriate sized patella. Patellar drilling was then carried out. The trial patella was positioned in place. The knee was taken through a range of motion which was easily 0 extension to 135, blocked by soft tissues in the popliteal aspect.. The patella trial was removed. The femoral drill holes were made. The femoral trial prosthesis was removed. The tibial spacer was removed. A bone plug was placed into the proximal tibia. The tibial punch was impacted through the proximal tibial punch guide. This was all removed followed by placement of the tibial drill guide. The tibial drill holes were then made. The guide was removed. The cut ends of bone were then cleaned with pulse lavage. The tibial baseplate was then impacted into place and seated appropriately. The spacer was inserted. The the femoral component was then impacted into place and seated appropriately. The patella component was then seated with the patellar vice and tightened appropriately. The knee was taken through a range of motion which was comparable to the previous range of motion with excellent stability in flexion and extension and appropriate patellofemoral tracking. The remainder of the Exparel was then injected throughout the knee as a local anesthetic. Drains were brought out the superior lateral aspect of the suprapatellar pouch. Wound closure then commenced using 0 Vicryl interrupted [id number] sutures for the capsular and fascial structures, 2-0 Vicryl interrupted simple sutures with buried knots for the subcutaneous tissues and 4- 0 Monocryl, tenuous subcuticular closure for the skin. The wound was then dressed with Dermabond Prinio followed by dry dressing, sterile soft roll with a cooling pad and Jose Manuel bandage from the base of the toes to mid thigh were then applied. Patient was then transferred from the operating room to the recovery room in satisfactory condition having tolerated procedure well. Counts are correct. Specimens: None. Estimated blood loss: 200 mL Branden Bridges MD (Charles) Sep 16, 2017 09:23
[2017-09-16] MEDS ORDERED: ECASA81 PO (09:26)
[2017-09-16] MEDS ORDERED: HYDR-3580 PO (09:26)
[2017-09-16] MEDS ORDERED: DO NOT ADM ANY ANTICOAGULANT DRUGS PRN (09:35)
[2017-09-16] MEDS: KETOROLAC TROMETHAMINE 30 MG/ML (IVP) VIAL IVP SCH ×3 (10:00→20:14)
[2017-09-16] MEDS: LACTATED RINGER'S 1000 ML INJ 1,000 ML IV SCH ×2 (10:00→20:12)
--- NOTE | 2017-09-16 11:04 | RADRPT ---
EXAM DATE/TIME: 09/16/2017 10:48 [facility] COMPARISON: No previous studies available for comparison. INDICATIONS : Post-op right knee replacement. MEDICAL HISTORY : None. SURGICAL HISTORY : Total knee replacement, left. Total knee replacement, right. ENCOUNTER: Initial ACUITY: 1 day PAIN SCORE: 0/10 LOCATION: Right Knee FINDINGS: AP and lateral views of the knee following arthroplasty reveals a prosthesis in anatomic alignment. F racture is not appreciated. Surgical drain is evident CONCLUSION: Status post total knee arthroplasty. Robin Winston MD FACR on September 16, 2017 at 11:01 Board Certified Radiologist. This report was verified electronically.
[2017-09-16] MEDS: MORPHINE SULFATE 2 MG/ML SYRINGE IV PUSH PRN ×3 (11:55→21:53)
[2017-09-16] MEDS ORDERED: ePHEDrine/NS 25 MG/5 ML SYRINGE IV ONE (12:00)
[2017-09-16] MEDS ORDERED: KETOROLAC TROMETHAMINE 30 MG/ML (IVP) VIAL IV PUSH ONE (12:00)
[2017-09-16] MEDS ORDERED: PHENYLEPH/NS 1000 MCG/10 ML SYR IV ONE (12:00)
[2017-09-16] MEDS ORDERED: PROPOFOL 200 MG/20 ML AMP IV ONE (12:00)
[2017-09-16] MEDS ORDERED: ONDANSETRON HCL 4 MG/2 ML VIAL IV PUSH ONE (12:00)
[2017-09-16] MEDS ORDERED: LACTATED RINGER'S 1000 ML INJ 1,000 ML IV ONE (12:00)
[2017-09-16] MEDS ORDERED: LIDOCAINE HCL 1% PF 5 ML SYRINGE OTHER ONE (12:00)
[2017-09-16] MEDS: ACETAMINOPHEN/HYDROcodone 325 MG/7.5 MG TAB PO PRN ×2 (14:58→20:14)
[2017-09-16 15:38] VITALS: BP 156/76; PULSE 56; RESP 18; TEMP 97.4; O2SAT 99
[2017-09-16 19:50] VITALS: BP 134/70; PULSE 61; RESP 16; TEMP 98.3; O2SAT 97
[2017-09-16] MEDS ORDERED: PRAVASTATIN SOD 80 MG TAB PO SCH (21:00)
[2017-09-16] MEDS ORDERED: TAMSULOSIN HCL 0.4 MG CAP PO SCH (21:00)
--- NOTE | 2017-09-16 21:55 | PD.CONS ---
HPI Service [facility] Consult Requested By Orthopedic surgery Reason for Consult Medical management. Primary Care Physician Pilo Ly MD Diagnoses: History of Present Illness Mr. Smith is a pleasant 72 year old male with a long history of osteoarthritis, hypertension, hyperlipidemia who underwent right total knee arthroplasty on 2017. Returned after surgery, currently, patient has no acute concerns. Pain is well controlled. No fever, chills. No CP, SOB. Denies any changes in bowel or bladder habits. Review of Systems Except as stated in HPI: all other systems reviewed are Neg Past Family Social History Allergies: Uncoded Allergies: STEROIDS (Allergy, Severe, FATIGUE, 05/31/17) Past Medical History Bladder cancer Hypertension Hyperlipidemia Osteoarthritis Past Surgical History Left knee arthroplasty Rotator cuff surgery Appendectomy Active Ordered Medications Current Medications Medications (Trade) Dose Ordered Sig/Dee Route Start Time Stop Time Status Last Admin Lactated Ringer's 1,000 ml @ 30 mls/hr Q24H PRN IV 09/16/17 05:45 09/19/17 05:44 09/16/17 06:30 Sodium Chloride 500 ml @ 30 mls/hr [id number] PRN IV 09/16/17 05:45 09/19/17 05:44 (Lopressor) 25 mg CHEESE MAKER PRN PO 09/16/17 05:45 09/19/17 05:44 (Betadine 5% Antisepsis Kit) 1 applic CHEESE MAKER PRN EACH NARE 09/16/17 05:45 09/19/17 05:44 09/16/17 06:00 (Chlorhexidine 2% Cloth) 3 pack CHEESE MAKER PRN TOPICAL 09/16/17 05:45 09/19/17 05:44 09/16/17 05:30 (Hibiclens 4% Top Soln) 1 applic ONCE TOPICAL 09/16/17 05:45 09/19/17 05:44 09/16/17 06:00 Cefazolin Sodium 2000 mg/Sodium Chloride 100 ml @ 200 mls/hr CHEESE MAKER IV 09/16/17 05:45 09/17/17 05:44 09/16/17 07:07 Lactated Ringer's 1,000 ml @ 80 mls/hr [id number] IV 09/16/17 07:00 09/16/17 20:12 Cefazolin Sodium 1000 mg/Sodium Chloride 100 ml @ 200 mls/hr Q6H IV 09/16/17 13:00 09/17/17 01:29 09/16/17 18:23 (Morphine Inj) 4 mg Q3H PRN IV PUSH 09/16/17 06:45 09/16/17 18:23 (Bucyrus 7.5-325 Mg) 1 tab Q4H PRN PO 09/16/17 06:45 (Bu[place]rus 7.5-325 Mg) 2 tab Q4H PRN PO 09/16/17 06:45 09/16/17 20:14 (Toradol Inj) 15 mg Q6H IVP 09/16/17 08:00 09/18/17 02:01 09/16/17 20:14 (Zofran Inj) 4 mg Q6H PRN IVP 09/16/17 06:45 (Colace) 100 mg BID PO 09/17/17 21:00 (Ambien) 5 mg HS PRN PO 09/16/17 06:45 (Milk Of Magnesia Liq) 30 ml DAILY PRN PO 09/16/17 06:45 (Ecotrin Ec) 81 mg BID PO 09/16/17 09:00 09/16/17 20:13 (Norvasc) 5 mg DAILY PO 09/16/17 09:00 (Proscar) 5 mg DAILY PO 09/16/17 09:00 (Claritin) 10 mg DAILY PO 09/16/17 09:00 (Cozaar) 100 mg DAILY PO 09/16/17 09:00 (Minocin) 50 mg BID PO 09/16/17 09:00 09/16/17 20:12 (Senokot) 8.6 mg DAILY PO 09/16/17 09:00 (Flomax) 0.4 mg HS PO 09/16/17 21:00 09/16/17 20:13 Patient Own Medication PT OWN MED: ZIAC (BISOPRO... DAILY PO 09/16/17 09:00 Future Hold Patient Own Medication PT OWN MED: CELEB... BID PO 09/16/17 09:00 Future Hold Patient Own Medication PT OWN MED: VOLTA... DAILY TOPICAL 09/16/17 09:00 Future Hold (Theragran M Tab) 1 tab DAILY PO 09/17/17 09:00 (Protonix) 20 mg DAILY PO 09/17/17 09:00 (Pravachol) 80 mg HS PO 09/16/17 21:00 09/16/17 20:13 (Vitamin E) 400 units DAILY PO 09/17/17 09:00 (Versed Inj) 2 mg CHEESE MAKER IV 09/16/17 06:45 09/17/17 06:44 09/16/17 06:29 (fentaNYL INJ) 50 mcg CHEESE MAKER IV 09/16/17 07:00 09/17/17 06:59 09/16/17 06:30 Miscellaneous Information ALL NURSING DEPARTME... [facility] PRN .XX 09/16/17 09:35 09/17/17 09:34 Family History Strong family history of various cancer - Mother's side breast cancer, ovarian cancer. Social History Patient denies using tobacco, alcohol or illicit drugs. Physical Exam Vital Signs Vital Signs Date Time Temp Pulse Resp B/P (MAP) Pulse Ox O2 Delivery O2 Flow Rate FiO2 09/16/17 15:38 97.4 56 18 156/76 (102) 99 09/16/17 11:30 Room Air 09/16/17 11:15 56 20 150/66 (94) 97 Nasal Cannula 2 09/16/17 10:45 55 20 150/66 (94) 96 Nasal Cannula 2 09/16/17 10:30 58 20 141/70 (93) 96 Nasal Cannula 2 09/16/17 10:15 55 20 129/65 (86) 96 Nasal Cannula 2 09/16/17 10:00 59 20 112/59 (76) 96 Nasal Cannula 2 09/16/17 09:40 97.8 61 20 105/59 (74) 98 Nasal Cannula 2 09/16/17 06:25 Nasal Cannula 2 09/16/17 05:35 98.6 60 20 146/81 (102) 98 Physical Exam GENERAL: This is a well-nourished, well-developed patient, in no apparent distress. SKIN: No rashes, ecchymoses or lesions. Warm and dry. HEAD: Atraumatic. Normocephalic. No temporal or scalp tenderness. EYES: Pupils equal round and reactive. No injection or drainage. ENT: Nose without bleeding, purulent drainage or septal hematoma. Airway patent. NECK: Trachea midline. No lymphadenopathy. Supple, nontender, no meningeal signs. CARDIOVASCULAR: Regular rate and rhythm without murmurs, gallops, or rubs. No JVD. RESPIRATORY: Clear to auscultation. Breath sounds equal bilaterally. No wheezes , rales, or rhonchi. GASTROINTESTINAL: Abdomen soft, non-tender, nondistended. No guarding. MUSCULOSKELETAL: Extremities without clubbing, cyanosis, or edema. s/p right TKA. NEUROLOGICAL: Awake and alert. Cranial nerves II through XII intact. No focal neurological deficits. Normal speech. Imaging Last Impressions Knee X-Ray 09/16/17 0638 Signed Impressions: Service Date/Time: Saturday, September 16, 2017 10:48 - CONCLUSION: Status post total knee arthroplasty. Robin Winston MD FACR Assessment and Plan Problem List: (1) Primary osteoarthritis of right knee ICD Code: M17.11 - Unilateral primary osteoarthritis, right knee (2) Status post total right knee replacement ICD Code: Z96.651 - Presence of right artificial knee joint Assessment and Plan Mr. Smith is a pleasant 72 year old male who underwent right TKA on 09/16/2017. Right knee osteoarthritis s/p right TKA Continue Bucyrus, Morphine for pain management Bowel regimen, Aspirin 81mg BID. Hypertension Hyperlipidemia Continue Amlodipine 5mg Qday, Losartan 100 mg Qday. Continue Pravastatin 80mg QHS. BP is slightly elevated which is likely due to pain. Will monitor. BPH - Continue Finasteride, Tamsulosin Full code. Aspirin 81mg BID. Thank you for the consult. We will continue to follow this patient with you. Violetta Escalera DO Sep 16, 2017 21:55
[2017-09-16 22:13] VITALS: O2SAT 96
[2017-09-16 23:15] VITALS: BP 129/71; PULSE 64; RESP 16; TEMP 97.7; O2SAT 96
[2017-09-17] MEDS: KETOROLAC TROMETHAMINE 30 MG/ML (IVP) VIAL IVP SCH ×2 (01:36→08:03)
[2017-09-17] MEDS: ACETAMINOPHEN/HYDROcodone 325 MG/7.5 MG TAB PO PRN ×3 (01:37→10:04)
[2017-09-17 03:10] VITALS: BP 120/69; PULSE 58; RESP 17; TEMP 97.8; O2SAT 97
--- NOTE | 2017-09-17 05:53 | PD.ORT.PN ---
Subjective Post Op Day #: 1 Subjective Remarks He is doing well. He has minimal complaints related to the knee. He was able to walk easily with physical therapy. He walked a circuit on the floor last night. Range of Motion 0 extension to 90 of flexion. Distance Walked 190 feet with PT. Objective Vitals Vital Signs Date Time Temp Pulse Resp B/P (MAP) Pulse Ox O2 Delivery O2 Flow Rate FiO2 09/17/17 03:10 97.8 58 17 120/69 (86) 97 09/16/17 23:15 97.7 64 16 129/71 (90) 96 09/16/17 22:13 96 21 09/16/17 19:50 98.3 61 16 134/70 (91) 97 09/16/17 15:38 97.4 56 18 156/76 (102) 99 09/16/17 11:30 Room Air 09/16/17 11:15 56 20 150/66 (94) 97 Nasal Cannula 2 09/16/17 10:45 55 20 150/66 (94) 96 Nasal Cannula 2 09/16/17 10:30 58 20 141/70 (93) 96 Nasal Cannula 2 09/16/17 10:15 55 20 129/65 (86) 96 Nasal Cannula 2 09/16/17 10:00 59 20 112/59 (76) 96 Nasal Cannula 2 09/16/17 09:40 97.8 61 20 105/59 (74) 98 Nasal Cannula 2 09/16/17 06:25 Nasal Cannula 2 I/O 09/16/17 09/16/17 09/16/17 09/17/17 09/17/17 09/17/17 07:00 15:00 23:00 07:00 15:00 23:00 Intake Total 1600 ml 1080 ml 1040 ml Output Total 410 ml 450 ml Balance 1190 ml 1080 ml 590 ml Intake Oral 840 ml IV Total 1600 ml 1080 ml 200 ml Output Urine Total 450 ml Drainage Total 210 ml Estimated Blood Loss 200 ml # Voids 1 # Bowel Movements 0 Imaging Last 24 hours Impressions Knee X-Ray 09/16/17 0638 Signed Impressions: Service Date/Time: Saturday, September 16, 2017 10:48 - CONCLUSION: Status post total knee arthroplasty. Robin Winston MD FACR Objective Remarks He is resting comfortably, supine in bed, in the CPM. The neurovascular status is intact. The dressing is dry and intact. Assessment & Plan Ortho Post Op Day #: 1 Problem List: (1) Status post total right knee replacement ICD Codes: Z96.651 - Presence of right artificial knee joint Plan: Continue postop care and PT. I have discussed his operation and findings with him. (2) Primary osteoarthritis of right knee ICD Codes: M17.11 - Unilateral primary osteoarthritis, right knee Status: Resolved Assessment and Plan Condition: Good. Orthopedically stable. DVT prophylaxis: Sequentials, KENA stockings, aspirin 81 mg twice daily. Discharge plans: Home with home health care. An appointment was scheduled through the office. Prescriptions: [place] 7.5/325 Branden Bridges MD (Charles) Sep 17, 2017 05:53
[2017-09-17 06:02] LABS: HEMATOCRIT 31.7 % (39.0-51.0); HEMOGLOBIN 10.6 GM/DL (13.0-17.0)
--- NOTE | 2017-09-17 06:39 | HHI.DS ---
Discharge Summary Admission Date Sep 16, 2017 at 05:10 Discharge Date: Sep 17, 2017 Admitting Diagnosis Primary osteoarthritis, right knee. Diagnosis: (1) Status post total right knee replacement Diagnosis: Principal ICD Codes: Z96.651 - Presence of right artificial knee joint (2) Primary osteoarthritis of right knee ICD Codes: M17.11 - Unilateral primary osteoarthritis, right knee Status: Resolved Procedures Right total knee arthroplasty using Paramjit Triathlon prosthesis (uncemented) on 09/16/2017. Brief History This is a 72 year old male patient has had long-standing arthritis in his right knee with progressive worsening and limitation of motion. He has had progressive deformity as well. He has not responded to conservative measures including anti-inflammatory agents, analgesics, activity modification, exercises and external support. Physical findings showed significant degenerative varum with palpable osteophytes, medial laxity and crepitation throughout the entire range of motion. X-rays showed significant arthritis to [id number] in the medial compartment with eburnation and tricompartmental osteophytes. CBC/BMP: 09/17/17 0524 Significant Findings Laboratory Tests Test 09/17/17 05:24 Hemoglobin 10.6 GM/DL (13.0-17.0) Hematocrit 31.7 % (39.0-51.0) Imaging Last 72 hours Impressions Knee X-Ray 09/16/17 0638 Signed Impressions: Service Date/Time: Saturday, September 16, 2017 10:48 - CONCLUSION: Status post total knee arthroplasty. Robin Winston MD FACR PE at Discharge He is resting comfortably, supine in bed, in the CPM. The neurovascular status is intact. The dressing is dry and intact. Hospital Course The patient was admitted as noted above. The above noted operative procedure was carried out that day. Preoperatively prophylactic antibiotics were administered Ancef according to protocol. These were continued postoperatively. The patient also received tranexamic acid to help with hemostasis according to protocol. In the postanesthesia care unit a continuous passive motion device was initiated. Also initiated were mechanical methods of DVT prophylaxis in the form of KENA stockings and sequentials. Physical therapy was initiated on the day of surgery. He walked 190 feet with therapy. On postoperative day #1 physical therapy continued. The use of the continuous passive motion device continued. DVT prophylaxis with aspirin 81 mg twice daily was initiated at this time. The patient continued physical therapy throughout the hospitalization. The distance walked and range of motion improved throughout the hospitalization. The patient was discharged on postoperative day 1 with the disposition being to home with home health care. An appointment for follow-up was made prior to admission. Pt Condition on Discharge: Good Discharge Disposition: Disch w/ Home Health Serv Discharge Instructions Diet Instructions: As Tolerated, No Restrictions Activities You Can Perform: Full Weight Bearing, Shower Only-No Bath Activities to Avoid: Lifting/Bending, Strenuous Activity, Bathing, Driving Follow up Referrals: Orthopedics with Branden Bridges MD ([facility]) New Medications: Aspirin DR (Aspirin DR) 81 Mg Tabdr 81 MG PO BID for Prevent Blood Clot for 30 Days, #60 TAB Hydrocodone/Acetaminophen (Hydrocodone-Acetamin 7.5-325) 7.5 Mg-325 Mg Tablet 1 TAB PO Q4H PRN for PAIN SCALE 1 TO 10, #30 TAB Continued Medications: Amlodipine (Amlodipine) 5 Mg Tab 5 MG PO DAILY for Blood Pressure Management, #30 TAB 0 Refills Ascorbic Acid ER (Vitamin C Sr) 500 Mg Caper 1000 MG PO DAILY for Nutritional Supplement, CAP 0 Refills Bisoprolol-Hydrochlorothiazide (Bisoprolol-Hydrochlorothiazide) 5-6.25 Mg Tab 1 TAB PO DAILY for Blood Pressure Management, #30 TAB 0 Refills Celecoxib (Celebrex) 50 Mg Cap 50 MG PO BID for Pain Management, CAP 0 Refills Diclofenac Sodium (Voltaren) 1 % Gel..gram. 1 APPLIC TOPICAL DAILY Finasteride (Proscar) 5 Mg Tab 5 MG PO DAILY for Manage Prostate Problems, #30 TAB 0 Refills Do not crush. Hydrocodone-Acetaminophen (Hydrocodone-Acetaminophen) 10-325 mg Tab 1 TAB PO Q4H PRN for PAIN, #30 TAB 0 Refills Loratadine (Allergy Relief) 10 Mg Tab 10 MG PO DAILY, TAB Losartan (Losartan) 100 Mg Tab 100 MG PO DAILY for Blood Pressure Management, #30 TAB 0 Refills Minocycline (Minocycline) 50 Mg Cap 50 MG PO BID for Mgmt Bacterial Infection, CAP 0 Refills Multiple Vitamin (Multi-Vitamin Daily) 1 Tab Tab 1 TAB PO DAILY for Nutritional Supplement, TAB 0 Refills [place]-3 Fatty Acids (Fish Oil) 60 Mg-90 Mg-500 Mg Cap 1 CAP PO DAILY Omeprazole (Omeprazole) 20 Mg Tab 20 MG PO DAILY, #30 TAB 0 Refills Sennosides (Senna-Tabs) 8.6 Mg Tab 8.6 MG PO DAILY for Constipation, #30 TAB 0 Refills Simvastatin (Simvastatin) 40 Mg Tab 40 MG PO HS for Cholesterol Management, #30 TAB 0 Refills Tamsulosin (Flomax) 0.4 Mg Cap 0.4 MG PO HS for Manage Prostate Problems, #30 CAP 0 Refills Vitamin E (Vitamin E) 200 Unit Cap 400 UNITS PO DAILY for Nutritional Supplement, CAP 0 Refills Branden Bridges MD ([facility]) Sep 17, 2017 06:39
[2017-09-17 07:43] VITALS: BP 114/68; PULSE 64; RESP 18; TEMP 97.8; O2SAT 95
[2017-09-17] MEDS: FINASTERIDE 5 MG TAB PO SCH (08:02)
[2017-09-17] MEDS: LORATADINE 10 MG TAB PO SCH (08:03)
[2017-09-17] MEDS: ASPIRIN EC 81 MG TABEC PO SCH (08:03)
[2017-09-17] MEDS: SENNOSIDES 8.6 MG TAB PO SCH (08:03)
[2017-09-17] MEDS: MINOCYCLINE HCL 50 MG CAP PO SCH (08:03)
[2017-09-17] MEDS: amLODIPine BESYLATE 5 MG TAB PO SCH (08:03)
[2017-09-17] MEDS: LOSARTAN 50 MG TAB PO SCH (08:03)
[2017-09-17] MEDS ORDERED: VITAMIN E 400 UNIT CAP PO SCH (09:00)
[2017-09-17] MEDS ORDERED: MULTIVITAMINS/MINERALS THERAPEUTIC TAB PO SCH (09:00)
[2017-09-17] MEDS ORDERED: PANTOPRAZOLE SOD 20 MG DELAYED RELEASE TAB PO SCH (09:00)
[2017-09-17] MEDS ORDERED: DOCUSATE SODIUM 100 MG CAP PO SCH (21:00)
== END 2017-09-17 11:08 | disposition home health service (06) | DRG 470 ==
LOC: HSDI 05:10 → N06A 12:17
PROVIDERS: ADMIT Orthopaedic Surgery; ATTEND Orthopaedic Surgery
PROC: 3E0T3BZ Introduction of Anesthetic Agent into Peripheral Nerves and Plexi, Percutaneous Approach (ICD-10-PCS; 2017-09-16)
PROC: 0SRC0JA Replacement of Right Knee Joint with Synthetic Substitute, Uncemented, Open Approach (ICD-10-PCS; principal; 2017-09-16 06:43)
DX: M17.11 Unilateral primary osteoarthritis, right knee (principal); M21.061 Valgus deformity, not elsewhere classified, right knee; I10 Essential (primary) hypertension; E78.5 Hyperlipidemia, unspecified; N40.0 Benign prostatic hyperplasia without lower urinary tract symptoms; Z96.652 Presence of left artificial knee joint; Z85.51 Personal history of malignant neoplasm of bladder
CPT/HCPCS: 73560; 85014; 85018; 86850; 86900; 86901; 94150; C1776; C9290; J0131; J0690; J1580; J1885; J2250; J2270; J2370; J2405; J3010; J7120